=== PATIENT | male | born 1960 | race Hispanic/Latino ===

== ENCOUNTER → 2024-09-28 | Day surgery (SDC) | payer MEDICARE ==
[2024-09-25 09:05] LABS: BASOPHILS % 0.3 % (0.0-1.0); EOSINOPHILS % 1.3 % (0.0-6.0); LYMPHOCYTES % 20.2 % (18.0-39.1); MONOCYTES % 8.5 % (4.4-11.3); NEUTROPHILS % 69.4 % (38.7-80.0); RED CELL DISTRIBUTION WIDTH 13.7 % (11.7-14.4)
[~2024-09-28] MED LIST: AMLODIPINE BESY10 MG PO; AVODART0.5 MG PO; FLOMAX0.4 MG PO; LIDOCAINE HCL 2% LOCAL INJ 5 ML SDV VIAL INJ ONE; LOSARTAN POTASS25 MG PO; PROPOFOL IV EMULSION 10 MG/ML 20 ML VIAL ONE
[2024-09-28] MEDS: LACTATED RINGER'S 1,000 ML ONE (06:19)
[2024-09-28 08:32] VITALS: TEMP 98.9
[2024-09-28 09:15] VITALS: BP 124/82; PULSE 55; RESP 16; O2SAT 98
== END | disposition home or self-care (01) ==
LOC: OR 05:41
PROVIDERS: ATTEND Internal Medicine Gastroenterology
DX: Z12.11 Encounter for screening for malignant neoplasm of colon (principal); D12.3 Benign neoplasm of transverse colon; D12.5 Benign neoplasm of sigmoid colon; K63.5 Polyp of colon; K57.30 Diverticulosis of large intestine without perforation or abscess without bleeding; K64.8 Other hemorrhoids; I10 Essential (primary) hypertension; Z68.34 Body mass index [BMI] 34.0-34.9, adult; Z01.810 Encounter for preprocedural cardiovascular examination; Z01.812 Encounter for preprocedural laboratory examination
CPT/HCPCS: 36415; 45385; 85025; 88305; 93005; J2003; J2704; J7121; 45378